=== PATIENT | female | born 1935 | race Caucasian/White ===

== ENCOUNTER 2016-06-19 09:24 | Day surgery (SDC) | payer MEDICARE ==
[~2016-06-19] VITALS: Ht 167.6 cm; Wt 61.2 kg
[~2016-06-19 09:24] MED LIST: ASPI-973 PO; ATEN25TA PO; CALC-140 PO; CITA20TA11 PO; HYDR25TA4 PO; L. A1CAP13 PO; LORA1TAB PO; MULT-1018 PO; NIFE30TA79 PO; OMEG-145 PO; OMEG300C3 PO; RALO60TA PO; SIMV40TA5 PO; Sodium Chloride LOK Flush 10 mL Syringe IV PRN; fentaNYL-PF 50 mCg/mL 2 mL Inj IVPUSH PRN
[2016-06-19 09:38] VITALS: BP 161/79; PULSE 98; RESP 16; O2SAT 98
[2016-06-19] MEDS ORDERED: LEVO88TA4 PO (09:42)
[2016-06-19] MEDS: 0.9% Sodium Chloride 1,000 ML IV SCH ×2 (09:50→10:08)
[2016-06-19] MEDS ORDERED: Ondansetron 2 mg/mL 2 mL Inj ONE (09:51)
[2016-06-19 10:25] VITALS: BP 115/79; PULSE 87; RESP 16; O2SAT 94
[2016-06-19 10:36] VITALS: BP 118/68; PULSE 75; RESP 14; O2SAT 94
[2016-06-19 10:44] VITALS: BP 115/68; PULSE 78; RESP 16; O2SAT 97
[2016-06-19 10:49] VITALS: BP 106/71; PULSE 78; RESP 16; O2SAT 96
--- NOTE | 2016-06-19 11:13 | ENDO ---
[address] [address] ENDOSCOPY PROCEDURE PATIENT: DELGADO BURT : 1935 MR#: [id number] ADMIT: 06/19/2016 JOB ID: [id number] DATE: 06/19/2016 TYPE OF OPERATION: Esophagogastroduodenoscopy with biopsy and esophageal dilatation. PREOPERATIVE DIAGNOSIS(ES): Dysphagia. POSTOPERATIVE DIAGNOSIS(ES): 1. Moderate nonerosive gastritis in the stomach status post biopsy. 2. Status post TTS CRE balloon dilatation performed to 20 mm with good mucosal tear. COMPLICATION: None. BLOOD LOSS: Minimal. ANESTHESIA: 1. Fentanyl 75 mcg. 2. Versed 3 mg IV administered. DESCRIPTION OF PROCEDURE: After the risks and benefits were explained to the patient, informed consent was obtained. After anesthesia administered, an upper endoscope was then inserted into the mouth intubating into the esophagus, stomach, second portion of duodenum. Mucosa carefully examined. At the end of the procedure, the scope was withdrawn and procedure terminated. FINDINGS: Upon inspection of the esophagus, the esophagus was normal without masses, ulcers or lesions. Z-line located 35 cm from incisors. Upon entering the stomach, there was moderate nonerosive gastritis that was seen throughout the entire stomach. Retroflexion was normal. Duodenal bulb, first and second portion were normal. Biopsies taken from antrum and body of stomach and mid distal esophagus. Afterwards a CRE TTS procedure balloon dilatation was performed to 20 mm with good mucosa tear. IMPRESSIONS: 1. Moderate gastritis status post biopsy. 2. Successful TTS CRE balloon dilatation to 20 mm with good mucosal tear. RECOMMENDATIONS: 1. Await pathology results. 2. Followup with Yaa Reid as an outpatient in GI Clinic. 3. Omeprazole 40 mg by mouth once a day.
--- NOTE | 2016-06-20 14:24 | PATH ---
SURGICAL PATHOLOGY Attending Physician:Ronnie Ruiz MD CASE STATUS: Signed Out PATIENT NAME: DELGADO BURT PID: [id number] : 1935 DATE COLLECTED:06/19/2016 16:54 SPECIMEN: 1: Stomach, Antrum, Biopsy 2: Gastric, Biopsy 3: Esophagus, Biopsy 4: Esophagus, Biopsy CLINICAL HISTORY: 1.ANTRUM BXS 2.GASTRIC BODY BXS 3.DISTAL ESOPHAGUS BXS 4.MID ESOPHAGUS BXS FINAL DIAGNOSIS: 1.ANTRUM BIOPSIES: MODERATE REACTIVE GASTROPATHY, ANTRAL MUCOSA. Negative for Helicobacter organisms. Negative for intestinal metaplasia. Negative for dysplasia and malignancy. 2.GASTRIC BODY BIOPSIES: BODY-TYPE MUCOSA WITH NO DIAGNOSTIC ALTERATIONS. Negative for Helicobacter organisms. Negative for intestinal metaplasia. Negative for dysplasia and malignancy. 3.DISTAL ESOPHAGUS BIOPSIES: SQUAMOUS MUCOSA WITH NO DIAGNOSTIC ALTERATIONS. Negative for intestinal/Butt' s metaplasia. Negative for dysplasia and malignancy. Eosinophils are not increased. 4.MID ESOPHAGUS BIOPSIES: SQUAMOUS MUCOSA WITH NO DIAGNOSTIC ALTERATIONS. Negative for intestinal/Butt' s metaplasia. Negative for dysplasia and malignancy. Eosinophils are not increased. ICD10 code K29.70 GROSS DESCRIPTION: The specimen is received in four formalin filled containers labeled with the patient's name. 1). The specimen is sublabeled "antrum" and consists of 3 portions of tissue which aggregate to 0.3 x 0.3 x 0.2 CM. The specimen is entirely submitted in cassette 1A. 2). The specimen is sublabeled "gastric body" and consists of a 0.3 x 0.3 x 0.3 CM portion of tissue which is entirely submitted in cassette 2A. 3). The specimen is sublabeled "distal esophagus" and consists of 2 portions of tissue which aggregate to 0.4 x 0.2 x 0.2 CM. The specimen is entirely submitted in cassette 3A. 4). The specimen is sublabeled "mid esophagus" and consists of 3 portions of tissue which aggregate to 0.2 x 0.2 x 0.2 CM. The specimen is entirely submitted in cassette 4A. 06/19/2016 [facility] MICRO DESCRIPTION: See diagnosis. ICD-9 CODES: CPT CODES: 1: 21405 2: 22051 3: 98016 4: 04498 Electronically Signed Out Kacy Carrasco MD [facility] [address], [place] [address] Technical component performed at [facility], [address], [place], [address]
== END 2016-06-19 23:59 | disposition home or self-care (01) ==
LOC: END 09:24
PROVIDERS: ATTEND Internal Medicine Gastroenterology
DX: K29.70 Gastritis, unspecified, without bleeding (principal); Z79.82 Long term (current) use of aspirin
CPT/HCPCS: 43239; 43249; 88305; G0500; J2250; J2405; J3010; J7030

== ENCOUNTER 2016-11-11 09:00 | Day surgery (SDC) | payer MEDICARE ==
[~2016-11-11] VITALS: Ht 168.9 cm; Wt 59.0 kg
[~2016-11-11 09:00] MED LIST changes: +0.9% Sodium Chloride 1,000 ML IV SCH; -ATEN25TA PO; -CALC-140 PO; -CITA20TA11 PO; +LEVO25TA5 PO; -NIFE30TA79 PO; -OMEG300C3 PO; +OMEP40CA36 PO; -RALO60TA PO; -SIMV40TA5 PO
[2016-11-11 09:31] VITALS: BP 151/85; PULSE 86; RESP 16; O2SAT 98
[2016-11-11] MEDS ORDERED: LEVO88TA4 PO (09:42)
[2016-11-11] MEDS ORDERED: POLY17PO6 PO (09:44)
[2016-11-11 10:46] VITALS: BP 104/68; PULSE 72; RESP 16; O2SAT 97
[2016-11-11 10:56] VITALS: BP 113/68; PULSE 80; RESP 16; O2SAT 98
[2016-11-11 11:05] VITALS: BP 137/84; PULSE 80; RESP 16; O2SAT 98
--- NOTE | 2016-11-11 11:42 | ENDO ---
[address] [address] ENDOSCOPY PROCEDURE PATIENT: DELGADO BURT : 1935 MR#: [id number] ADMIT: 11/11/2016 JOB ID: [id number] PRIMARY PROVIDER: [facility]. PROCEDURE: Colonoscopy with hot snare polypectomy. INDICATIONS: A 81-year-old female who reports a tendency towards constipation and abdominal pains. EQUIPMENT: [id number]. SEDATION: 4 mg Versed and 100 mcg fentanyl. COMPLICATIONS: None identified. BOWEL PREPARATION: Fair. PROCEDURE INFORMATION: After the risks and benefits were explained, written and verbal informed consent was obtained. The patient was brought into the endoscopy suite and placed into the left lateral decubitus position. Sedation was achieved as above. A digital rectal examination was accomplished. Mild internal hemorrhoids noted. No other significant pathology. The scope was introduced into the rectum and advanced to the cecum as identified by the appendiceal orifice and ileocecal valve. The terminal ileum was interrogated. The scope then slowly withdrawn to carefully examine the mucosa for any defects or lesions. Multiple direct views were made through the dentate line for exclusion of pathology. The colon was decompressed, the scope removed from the patient who tolerated the procedure well. FINDINGS: The terminal ileum appeared normal. There was a small, perhaps 5 mm, pedunculated polyp in the sigmoid that gave the appearance of maybe some adenomatous and hyperplastic mixed features. This was removed with hot snare. Unfortunately, the polyp got volleyed well upstream from the resection site and I could not locate it after it had been excised. There was evidence of sigmoid diverticulosis. No other significant pathology appreciated throughout. ENDOSCOPIC DIAGNOSES: 1. Colon polyp. 2. Diverticulosis. 3. Hemorrhoids. RECOMMENDATIONS: 1. Continue bowel regimen. 2. Surveillance colonoscopy would not be anticipated. This would place the patient at age 86 and it would certainly be optional at that point. 3. Follow up in GI clinic as needed CC: [facility]
== END 2016-11-11 23:59 | disposition home or self-care (01) ==
LOC: END 09:00
PROVIDERS: ATTEND Internal Medicine Gastroenterology
DX: K63.5 Polyp of colon (principal); D12.5 Benign neoplasm of sigmoid colon; K64.9 Unspecified hemorrhoids; K57.30 Diverticulosis of large intestine without perforation or abscess without bleeding; K59.00 Constipation, unspecified; R10.84 Generalized abdominal pain; R11.10 Vomiting, unspecified; R63.4 Abnormal weight loss; Z68.21 Body mass index [BMI] 21.0-21.9, adult; Z79.82 Long term (current) use of aspirin
CPT/HCPCS: 45385; 99153; G0500; J2250; J3010; J7030